=== PATIENT | female | born 1970 | race Caucasian/White ===

== ENCOUNTER 2017-05-13 07:30 | Inpatient (IN) | payer OTHER ==
[~2017-05-13] VITALS: Ht 157.5 cm; Wt 59.0 kg
[2017-05-22] MEDS ORDERED: FAMOTIDINE20 MG PO (13:38)
[2017-05-22] MEDS ORDERED: CODE1TAB37 PO (13:38)
[2017-05-22] MEDS ORDERED: NAPR500T14 PO (13:38)
== END 2017-05-22 14:35 | DRG 583 ==
LOC: OB/GYN 05-19 07:08 → O/R 05-19 07:08 → OB/GYN 05-19 07:30
PROVIDERS: Obstetrics & Gynecology; Specialist
PROC: 0UT70ZZ Resection of Bilateral Fallopian Tubes, Open Approach (ICD-10-PCS; 2017-05-19)
PROC: 0TJB8ZZ Inspection of Bladder, Via Natural or Artificial Opening Endoscopic (ICD-10-PCS; 2017-05-19)
PROC: 0HBU0ZZ Excision of Left Breast, Open Approach (ICD-10-PCS; principal; 2017-05-19 08:30)
PROC: 0UT90ZZ Resection of Uterus, Open Approach (ICD-10-PCS; 2017-05-19 08:30)
DX: D05.82 Other specified type of carcinoma in situ of left breast (principal); D25.1 Intramural leiomyoma of uterus; D25.2 Subserosal leiomyoma of uterus; N92.0 Excessive and frequent menstruation with regular cycle; N84.0 Polyp of corpus uteri; N72 Inflammatory disease of cervix uteri

== ENCOUNTER 2023-01-07 08:27 | Outpatient (CLI) | payer OTHER ==
[~2023-01-07 08:27] MED LIST: CODE1TAB37 PO; FAMOTIDINE20 MG PO; NAPR500T14 PO
== END 2023-01-07 08:34 | disposition home or self-care (01) ==
LOC: SONOGRAMA 08:27 → RAD 15:43
DX: M15.0 Primary generalized (osteo)arthritis (principal); E04.1 Nontoxic single thyroid nodule; E04.9 Nontoxic goiter, unspecified; Z91.040 Latex allergy status; Z88.0 Allergy status to penicillin

== ENCOUNTER → 2023-01-07 13:02 | Outpatient (CLI) | payer OTHER ==
[2023-01-07 08:52] LABS: PH,URINE 6.5 (5.0-8.0); URINE APPEARANCE Clear; URINE BILIRRUBIN Negative (NEGATIVE); URINE BLOOD Negative; URINE COLOR Yellow; URINE GLUCOSE Negative (NEGATIVE); URINE LEUKOCYTE Negative; URINE NITRATE Negative; URINE PROTEIN Negative (NEGATIVE); URINE UROBILINOGEN 0.2 E.U./dl
[2023-01-07 08:53] LABS: URINE BACTERIA 188.9 uL (0.0-1933); URINE EPITHELIAL CELLS 7.4 uL (0.0-38.8); URINE RBC 3.3 uL (0.0-20.8)
[2023-01-07 08:54] LABS: HEMATOCRIT 42.5 % (36.0-45.00); HEMOGLOBIN 14.2 g/dL (12.0-15.00); MEAN CELL VOLUME 89.6 fL (80.00-100.00); MEAN CORPUSCULAR HGB CONC 33.5 g/dl (32.0-36.0); PLATELET COUNT 215 K/uL (150-450); RED BLOOD COUNT 4.75 M/uL (4.00-6.00); RED CELL DISTRIBUTION WIDTH 12.6 % (11.5-14.5)
[2023-01-07 09:58] LABS: ALBUMIN 3.8 gm/dL (3.4-5.0); BILIRUBIN TOTAL 0.49 mg/dL (0.3-1.2); CALCIUM 8.9 mg/dL (8.5-10.1); CHOL HDL RATIO 3.6 (0-5.0); CREATININE SERUM 0.71 mg/dL (0.55-1.02); GFR 86.79; GLOBULINA 3.3 G/DL (2.4-3.5); POTASSIUM 4.54 mEq/L (3.5-5.1); T4 FREE 0.98 NG/ML (0.76-1.46); TOTAL PROTEIN 7.1 gm/dL (6.4-8.2); TSH 2.19 uIU/mL (0.358-3.74)
== END | disposition home or self-care (01) ==
LOC: LAB 01-06 15:38
DX: E11.69 Type 2 diabetes mellitus with other specified complication (principal); N95.0 Postmenopausal bleeding; I11.9 Hypertensive heart disease without heart failure; E78.2 Mixed hyperlipidemia; R06.2 Wheezing; E03.8 Other specified hypothyroidism; Z88.0 Allergy status to penicillin; Z91.040 Latex allergy status

== ENCOUNTER 2023-05-25 11:20 | Outpatient (CLI) | payer OTHER | END 2023-05-25 11:21 | disposition home or self-care (01) | LOC: NUCLEAR 11:20 | PROVIDERS: ATTEND Internal Medicine | DX: M81.0 Age-related osteoporosis without current pathological fracture (principal) ==

== ENCOUNTER 2023-05-25 13:31 | Outpatient (CLI) | payer OTHER | END 2023-05-25 13:45 | disposition home or self-care (01) | LOC: MRI 13:31 | PROVIDERS: ATTEND Internal Medicine | DX: M54.17 Radiculopathy, lumbosacral region (principal) | CPT/HCPCS: 72148 ==

== ENCOUNTER 2023-06-06 08:25 | Outpatient (CLI) | payer OTHER | END 2023-06-06 08:28 | disposition home or self-care (01) | LOC: SONOGRAMA 08:25 | PROVIDERS: ATTEND Pathology Anatomic Pathology & Clinical Pathology | DX: D34 Benign neoplasm of thyroid gland (principal); E07.89 Other specified disorders of thyroid; E04.2 Nontoxic multinodular goiter ==